=== PATIENT | female | born 1970 | race Caucasian/White ===

== ENCOUNTER 2016-09-22 12:24 | Emergency (ER) | payer MEDICAID ==
[~2016-09-22] VITALS: Ht 167.6 cm; Wt 56.7 kg
[~2016-09-22 12:24] MED LIST: PROAIR HFA0.09 MG/Ac IH
[2016-09-22 12:56] VITALS: BP 116/62
--- NOTE | 2016-09-22 13:38 | NUR ---
Patient ambulated to bed 04.
--- NOTE | 2016-09-22 13:58 | NUR ---
PATIENT PRESENTS TO ED DUE TO RIGHT KNEE X2 WEEKS. DENIES N/V/D; SKIN IS PINK/WARM/DRY; AAOX4 WITH EVEN AND STEADY GAIT; LUNGS CLEAR BL; HR EVEN AND REGULAR; PT DENIES ANY FEVER, CP, SOB, OR COUGH AT THIS TIME; PATIENT STATES PAIN OF 9/10 AT THIS TIME; PATIENT POSITIONED FOR COMFORT; HOB ELEVATED; BEDRAILS UP X2; BED DOWN. ER MD MADE AWARE OF PT STATUS.
--- NOTE | 2016-09-22 13:59 | NUR ---
PT AAO, WATCHING VIDEO.
[2016-09-22 14:33] VITALS: BP 116/62
--- NOTE | 2016-09-22 14:35 | NUR ---
Patient discharged with v/s stable. Written and verbal after care instructions given and explained. Patient alert, oriented and verbalized understanding of instructions. Ambulatory with steady gait. All questions addressed prior to discharge. ID band removed. Patient advised to follow up with PMD. Rx of ALBUTEROL AND TRAMADOL given. Patient educated on indication of medication including possible reaction and side effects. Opportunity to ask questions provided and answered.
== END 2016-09-22 14:35 | disposition home or self-care (01) ==
LOC: MED 12:24
DX: S80.01XA Contusion of right knee, initial encounter (principal); J06.9 Acute upper respiratory infection, unspecified; J45.901 Unspecified asthma with (acute) exacerbation; W18.30XA Fall on same level, unspecified, initial encounter; Y93.89 Activity, other specified; Y92.89 Other specified places as the place of occurrence of the external cause; Y99.8 Other external cause status

== ENCOUNTER 2016-11-13 07:06 | Emergency (ER) | payer MEDICAID ==
[~2016-11-13] VITALS: Ht 167.6 cm; Wt 61.2 kg
[~2016-11-13 07:06] MED LIST changes: +ALBU-136 IH; -PROAIR HFA0.09 MG/Ac IH
[2016-11-13 07:21] VITALS: BP 94/71
--- NOTE | 2016-11-13 07:28 | NUR ---
Patient ambulated to bed 04.
--- NOTE | 2016-11-13 07:45 | NUR ---
PATIENT PRESENTS TO ED WITH C/O RIGHT KNEE PAIN X4 MONTHS, UTI SYMPTOMS WITH FREQUENCY, CHEST CONGESTION; DENIES N/V/D; SKIN IS PINK/WARM/DRY; AAOX4 WITH EVEN AND STEADY GAIT; LUNGS BL EXP WHZ; HR EVEN AND REGULAR; PT DENIES ANY FEVER OR CP AT THIS TIME; PATIENT STATES PAIN OF 10/10 AT THIS TIME; VSS; PATIENT POSITIONED FOR COMFORT; HOB ELEVATED; BEDRAILS UP X2; BED DOWN. ER MD MADE AWARE OF PT STATUS.
--- NOTE | 2016-11-13 07:52 | NUR ---
Dr. Pino evaluating patient at bedside.
[2016-11-13] MEDS: ALBUTEROL SULFATE/IPRATROPIU 3 ML SOL IH ONE (08:08)
[2016-11-13] MEDS: ALBUTEROL 0.083% 2.5 MG/3 ML NEBU INH ONE (08:08)
--- NOTE | 2016-11-13 08:11 | NUR ---
RT at bedside to give patient breathing treatment.
[2016-11-13] MEDS: predniSONE 20 MG TAB PO ONE (08:35)
[2016-11-13] MEDS: KETOROLAC 60 MG/2 ML VIAL IM ONE (08:35)
[2016-11-13 08:51] VITALS: BP 106/81
--- NOTE | 2016-11-13 08:51 | NUR ---
Patient discharged with v/s stable. Written and verbal after care instructions given and explained. Patient alert, oriented and verbalized understanding of instructions. Ambulatory with steady gait. All questions addressed prior to discharge. ID band removed. Patient advised to follow up with PMD. Rx of MOTRIN, PREDNISONE, NORCO, CIPRO given. Patient educated on indication of medication including possible reaction and side effects. Opportunity to ask questions provided and answered.
== END 2016-11-13 08:51 | disposition home or self-care (01) ==
LOC: MED 07:06
DX: J45.909 Unspecified asthma, uncomplicated (principal); N39.0 Urinary tract infection, site not specified; M25.561 Pain in right knee; F12.90 Cannabis use, unspecified, uncomplicated
CPT/HCPCS: 81002; 94640; 96372; 99283; J1885; J7512; J7613; J7620

== ENCOUNTER 2016-12-11 20:07 | Emergency (ER) | payer MEDICAID ==
[~2016-12-11] VITALS: Ht 167.6 cm; Wt 62.6 kg
[2016-12-11 20:32] VITALS: BP 97/68
--- NOTE | 2016-12-11 21:03 | NUR ---
PT TAKEN TO OF2
--- NOTE | 2016-12-11 21:08 | NUR ---
Dr. Gaming evaluating patient
[2016-12-11] MEDS ORDERED: NACL 0.9% 1,000 ML IV ONE (21:09)
[2016-12-11] MEDS ORDERED: MORPHINE SULFATE 4 MG/ML SYR IVP ONE (21:10)
[2016-12-11] MEDS ORDERED: ONDANSETRON 4 MG/2 ML VIAL IVP ONE (21:10)
[2016-12-11 21:46] LABS: BASOPHILS # (AUTO) 0.2 K/uL (0.00-0.22); BASOPHILS % (AUTO) 2.2 % (0.0-2.0); EOSINOPHILS # (AUTO) 0.2 K/uL (0-0.4); EOSINOPHILS % (AUTO) 3.4 % (0.0-4.0); HEMOGLOBIN 15.7 g/dL (12.0-16.0); LYMPHOCYTES # (AUTO) 2.2 K/uL (2.5-16.5); LYMPHOCYTES % (AUTO) 31.6 % (20.5-51.1); MEAN CORPUSCULAR HEMOGLOBIN 31 pg (27-31); MEAN CORPUSCULAR HGB CONC 33 g/dL (33-37); MEAN CORPUSCULAR VOLUME 92 fL (80-94); MONOCYTES # (AUTO) 0.3 K/uL (0.8-1.0); NEUTROPHILS # (AUTO) 4.1 K/uL (1.8-7.7); NEUTROPHILS % (AUTO) 57.8 % (42.2-75.2); PLATELET COUNT (AUTO) 258 K/uL (140-450); RED CELL DISTRIBUTION WIDTH 12.3 % (11.6-13.7)
--- NOTE | 2016-12-11 21:46 | NUR ---
PT MOVED TO BED 5
--- NOTE | 2016-12-11 21:50 | NUR ---
PT TAKEN TO CT
[2016-12-11 21:55] LABS: APPEARANCE,URINE HAZY (CLEAR); BILIRUBIN,URINE NEGATIVE (NEGATIVE); BLOOD, URINE NEGATIVE (NEGATIVE); COLOR,URINE YELLOW (YELLOW); LEUKOCYTE ESTERASE ,URINE TRACE (NEGATIVE); NITRITE, URINE NEGATIVE (NEGATIVE); PROTEIN,URINE NEGATIVE (NEGATIVE); UGLUCOSE NEGATIVE (NEGATIVE); UROBILINOGEN,URINE 0.2 EU/dL (0.2 - 1)
[2016-12-11 21:56] LABS: ANION GAP 12.8 (8-16); CARBON DIOXIDE 26.9 mmol/L (21-32); CREATININE 0.8 mg/dL (0.6-1.3); POTASSIUM 3.7 mmol/L (3.5-5.1)
--- NOTE | 2016-12-11 21:59 | NUR ---
PT RETURN FROM CT
[2016-12-11 22:02] LABS: ALBUMIN 4.3 g/dL (3.4-5.0); TOTAL BILIRUBIN 0.4 mg/dL (0.0-1.0); TOTAL PROTEIN, SERUM 8.2 g/dL (6.4-8.2)
[2016-12-11 22:06] LABS: RBC,URINE 0-3 /HPF (0-5)
[2016-12-11 22:07] LABS: BACTERIA,URINE 1+ /HPF (None Seen); MUCUS,URINE 1+ /LPF (None Seen); SQUAMOUS EPITHELIAL CELL,UR 15-30 /LPF (0-3 (FEW))
--- NOTE | 2016-12-11 23:12 | NUR ---
PT CALLED TO PICK HER UP.
[2016-12-11 23:13] VITALS: BP 95/66
--- NOTE | 2016-12-11 23:14 | NUR ---
Patient discharged with v/s stable. Written and verbal after care instructions given and explained. Patient verbalized understanding. Ambulatory with steady gait. All questions addressed prior to discharge. Advised to follow up with PMD.
== END 2016-12-11 23:14 | disposition home or self-care (01) ==
LOC: MED 20:07
DX: N39.0 Urinary tract infection, site not specified (principal); J20.9 Acute bronchitis, unspecified
CPT/HCPCS: 36415; 74176; 80053; 81001; 81025; 83690; 85025; 87086; 96361; 96374; 96375; 99285; J2270; J2405; J7030

== ENCOUNTER 2017-03-24 09:39 | Emergency (ER) | payer SELFPAY ==
--- NOTE | 2017-03-24 10:00 | NUR ---
PATIENT LEFT WITHOUT BEING SEEN BY DR. GARSIA. NO FURTHER CARE PROVIDED FOR PATIENT.
== END 2017-03-24 10:00 | disposition left against medical advice (07) ==
LOC: MED 09:39
DX: Z53.21 Procedure and treatment not carried out due to patient leaving prior to being seen by health care provider (principal)

== ENCOUNTER 2017-06-28 06:01 | Emergency (ER) | payer OTHER ==
[~2017-06-28] VITALS: Ht 165.1 cm; Wt 62.6 kg
[2017-06-28 06:08] VITALS: BP 93/73
--- NOTE | 2017-06-28 06:13 | NUR ---
PT TAKEN TO BED 1
--- NOTE | 2017-06-28 06:17 | NUR ---
46 Y/O F W/C/O DOG BITE TO LT. THUMB X YESTERDAY AT 1500.PT UNABLE TO RECALL LAST TATANUS VACCINE. BLEEDING UNDER CONTROL. HX. ASTHMA
--- NOTE | 2017-06-28 07:21 | NUR ---
Pt report given to MG CARVAJAL. Transfer of care at this time.
--- NOTE | 2017-06-28 07:30 | NUR ---
Received report from Nargis RN, pt aox4, rr are even and unlabored. nad. will continue to monitor.
[2017-06-28] MEDS ORDERED: ACETAMINOPHEN/CODEINE 300/30MG 1 TAB PO ONE (07:45)
--- NOTE | 2017-06-28 08:14 | NUR ---
Patient discharged with v/s stable. Written and verbal after care instructions given and explained. Patient alert, oriented and verbalized understanding of instructions. Ambulatory with steady gait. All questions addressed prior to discharge. ID band removed. Patient advised to follow up with PMD. Rx of Promethazine Hydrochloride, Tyelnol with Codeine, Motrin, and Augmentin given. Patient educated on indication of medication including possible reaction and side effects. Opportunity to ask questions provided and answered.
[2017-06-28 08:15] VITALS: BP 101/63
== END 2017-06-28 08:14 | disposition home or self-care (01) ==
LOC: MED 06:01
DX: S61.052A Open bite of left thumb without damage to nail, initial encounter (principal); J06.9 Acute upper respiratory infection, unspecified; J45.909 Unspecified asthma, uncomplicated; W54.0XXA Bitten by dog, initial encounter; Y93.89 Activity, other specified; Y92.89 Other specified places as the place of occurrence of the external cause; Y99.8 Other external cause status
CPT/HCPCS: 73140; 90471; 90715; 99284; Q0092

== ENCOUNTER 2019-09-02 07:15 | Day surgery (SDC) | payer OTHER ==
[~2019-09-02] VITALS: Ht 167.6 cm; Wt 59.0 kg
[2019-09-02] MEDS ORDERED: fentaNYL 0.05 MG/ML VIAL ONE (08:56)
[2019-09-02] MEDS ORDERED: MIDAZOLAM 2 MG/2 ML VIAL ONE (08:56)
[2019-09-02] MEDS ORDERED: LIDOCAINE VISCOUS 2% 20 ML UDC ONE (09:30)
== END 2019-09-02 10:22 | disposition home or self-care (01) ==
LOC: MDS 07:15 → MMU 07:16 → MDS 10:22
PROVIDERS: ATTEND Internal Medicine Gastroenterology
DX: R11.2 Nausea with vomiting, unspecified (principal); K29.80 Duodenitis without bleeding; F17.200 Nicotine dependence, unspecified, uncomplicated; J45.909 Unspecified asthma, uncomplicated; Z87.442 Personal history of urinary calculi; Z98.890 Other specified postprocedural states; Z98.51 Tubal ligation status
CPT/HCPCS: 36415; 43239; 86677; J2250; J7030; J3010